=== PATIENT | female | born 1965 | race African-American/Black ===

== ENCOUNTER 2019-03-01 06:52 | Emergency (ER) | payer OTHER, BC ==
[2019-03-01] MEDS ORDERED: MORPHINE SULFATE 10 MG/ML INJ IV ONE (07:13)
[2019-03-01] MEDS ORDERED: BENZONATATE 100 MG CAPSULE PO ONE (07:13)
--- NOTE | 2019-03-01 07:21 | ER Document Report ---
ED General - General Chief Complaint: Painful Cough Stated Complaint: TROUBLE BREATHING Time Seen by Provider: 03/01/19 07:06 - HPI Notes: This is a 53-year-old female who presents today with a complaint of cough, hemoptysis and pleuritic right-sided chest pain. Patient states that she started having sharp right lateral chest wall/rib pain 2 weeks ago. Pain was worse with inspiration. She thought she might of pulled a muscle. She also have some dyspnea at the time. She states that she did relatively okay until today when she coughed up and she had blood-tinged mucus. She describes it as initially pink and then red sputum. Describes it as mild hemoptysis. She denies any recent foreign travel. She denies any night sweats. She has had slight weight loss. She denies any known exposure to tuberculosis. She recen tly moved here from [place]. She denies any calf pain. She denies any fever or chills. Describes her symptoms as moderate. Pain is worse with inspiration and coughing. - Related Data Allergies/Adverse Reactions: No Known Allergies Allergy (Unverified 03/01/19 06:53) Past Medical History - Social History Smoking Status: Never Smoker Frequency of alcohol use: None Drug Abuse: None Family History: Reviewed & Not Pertinent Patient has suicidal ideation: No Patient has homicidal ideation: No Review of Systems - Review of Systems Cardiovascular: Other - Right lateral rib/chest wall pain. Respiratory: Cough, Hemoptysis, Short of breath, Sputum Gastrointestinal: denies: Abdominal pain -: Yes All other systems reviewed and negative Physical Exam - Vital signs Vitals: Temp Pulse Resp BP Pulse Ox 99.0 F 99 30 H 165/80 H 97 03/01/19 06:57 03/01/19 06:57 03/01/19 06:57 03/01/19 06:57 03/01/19 06:57 - General General appearance: Appears well, Alert In distress: None - Respiratory Respiratory status: No respiratory distress, Tachypnea Chest status: Tender - Right posterior lateral chest wall tenderness. No crepitus or flail chest., Pain on movement, Pain with cough, Pain with deep breathing, Splinting Breath sounds: Decreased air movement. No: Rales, Wheezing Chest palpation: Normal - Cardiovascular Rhythm: Regular Heart sounds: Normal auscultation Murmur: No - Abdominal Inspection: Normal Distension: No distension Bowel sounds: Normal Tenderness: Nontender Organomegaly: No organomegaly - Extremities General upper extremity: Normal inspection, Nontender, Normal color, Normal ROM, Normal temperature General lower extremity: Normal inspection, Nontender, Normal color, Normal ROM, Normal temperature, Normal weight bearing. No: Sussy's sign - Neurological Neuro grossly intact: Yes Cognition: Normal Orientation: AAOx4 [place] Coma Scale Eye Opening: Spontaneous [place] Coma Scale Verbal: Oriented [place] Coma Scale Motor: Obeys Commands [place] Coma Scale Total: 15 Speech: Normal Motor strength normal: LUE, RUE, LLE, RLE Sensory: Normal - Psychological Associated symptoms: Normal affect, Normal mood Course - Re-evaluation Re-evalutation: 03/01/19 07:19 Differential diagnosis includes pulmonary embolus versus pneumonia versus bronchiectasis. Doubt tuberculosis. Costochondritis/chest wall strain is also possibility. There is no clinical suspicion for acute coronary syndrome with no left sided anterior chest pain. Will get CT angios. EKG shows normal sinus rhythm 96 bpm. Normal axis. No acute injury pattern. 03/01/19 09:16 Patient reevaluated. Patient is doing well. CT shows right lower lobe pneumonia. Patient is hemodynamically stable. She is not hypoxic. Labs otherwise unremarkable. She should be able to be managed as an outpatient. I will get a blood gas to make sure there is no acidosis or hypoxemia. Her pneumonia severity score so far is 44 which will be negative of outpatient management. 03/01/19 11:22 Patient reevaluated. Patient is doing well. She feels much better. Blood gas reviewed. Patient does not meet criteria for inpatient admission. We will put her on Levaquin. She is stable for discharge. Counseled to follow-up with her primary care provider. - Vital Signs Vital signs: Temp Pulse Resp BP Pulse Ox 99.0 F 99 19 150/88 H 97 03/01/19 06:57 03/01/19 06:57 03/01/19 11:03 03/01/19 11:03 03/01/19 11:03 - Laboratory Result Diagrams: 03/01/19 07:19 03/01/19 07:19 Laboratory results interpreted by me: 03/01/19 03/01/19 03/01/19 07:19 07:19 10:34 Hgb 10.8 L Hct 31.9 L RDW 14.3 H Citrus % (Auto) 13.8 H ABG pH 7.48 H ABG pO2 73.1 L ABG HCO3 27.9 H ABG Total CO2 29.0 H Glucose 168 H Discharge - Discharge Clinical Impression: Pneumonia Qualifiers: Pneumonia type: due to unspecified organism Laterality: right Lung location: lower lobe of lung Qualified Code(s): J18.9 - Pneumonia, unspecified organism Condition: Good Disposition: HOME, SELF-CARE Instructions: Pneumonia (OM) Additional Instructions: Return if worse or concerns. Follow-up with your doctor next week. Prescriptions: Guaifenesin/Hydrocodone Bit [Hycotuss Expectorant] 5 ml PO BID PRN #100 ml PRN Reason: Cough Levofloxacin [Levaquin 750 mg Tablet] 750 mg PO DAILY #5 tablet Ref[facility]: [facility] [NO LOCAL MD] - Follow up as needed
[2019-03-01 07:38] LABS: ABSOLUTE EOSINOPHILS # (AUTO) 0.1 10^3/uL (0.0-0.6); ABSOLUTE LYMPHOCYTES (AUTO) 1.9 10^3/uL (0.5-4.7); ABSOLUTE MONOCYTES (AUTO) 1.3 10^3/uL (0.1-1.4); ABSOLUTE NEUT (AUTO) 6.2 10^3/uL (1.7-8.2); BASOPHILS % (AUTO) 0.4 % (0-2); EOSINOPHILS % (AUTO) 0.6 % (0-6); HEMATOCRIT 31.9 % (36.0-47.0); HEMOGLOBIN 10.8 g/dL (12.0-15.5); LYMPHOCYTES % (AUTO) 19.9 % (13-45); MEAN CORPUSCULAR HEMOGLOBIN 27.3 pg (27.0-33.4); MEAN CORPUSCULAR HGB CONC 33.8 g/dL (32.0-36.0); MEAN CORPUSCULAR VOLUME 81 fl (80-97); MONOCYTES % (AUTO) 13.8 % (3-13); PLATELET COUNT 364 10^3/uL (150-450); RED BLOOD COUNT 3.96 10^6/uL (3.72-5.28); RED CELL DISTRIBUTION WIDTH 14.3 % (11.5-14.0); SEGMENTED NEUTROPHILS % (AUTO) 65.3 % (42-78); TOTAL CELLS COUNTED % (AUTO) 100 %; WHITE BLOOD COUNT 9.5 10^3/uL (4.0-10.5)
[2019-03-01 07:54] LABS: ANION GAP 12 (5-19); BLOOD UREA NITROGEN 9 mg/dL (7-20); CALCIUM 9.3 mg/dL (8.4-10.2); CARBON DIOXIDE 27 mmol/L (22-30); CHLORIDE 103 mmol/L (98-107); GLUCOSE 168 mg/dL (75-110)
--- NOTE | 2019-03-01 08:07 | RADIOLOGY REPORT (SQ) ---
EXAM DESCRIPTION: CHEST SINGLE VIEW COMPLETED DATE/TIME: 03/01/2019 7:54 am REASON FOR STUDY: pleuritic pain, hemoiptysis, dyspnea ? PE COMPARISON: None. NUMBER OF VIEWS: One view. TECHNIQUE: Single frontal radiographic view of the chest acquired. LIMITATIONS: None. FINDINGS: LUNGS AND PLEURA: Opacities at the right lung base. No effusions. No pneumothorax. MEDIASTINUM AND HILAR STRUCTURES: No masses or contour abnormality. HEART AND VASCULATURE: Cardiac enlargement. Vascular congestion. BONES: No acute findings. HARDWARE: None in the chest. OTHER: No other significant finding. IMPRESSION: CARDIAC ENLARGEMENT. VASCULAR CONGESTION. Superimpose right basilar opacity. TECHNICAL DOCUMENTATION: JOB ID: [id number] [employer]- All Rights Reserved Reading location - IP/workstation name: [email or web address]
--- NOTE | 2019-03-01 09:01 | RADIOLOGY REPORT (SQ) ---
EXAM DESCRIPTION: CTA CHEST COMPLETED DATE/TIME: 03/01/2019 8:44 am REASON FOR STUDY: pleuritic pain, hemoiptysis, dyspnea ? PE COMPARISON: Chest radiograph TECHNIQUE: CT scan of the chest performed using helical scanning technique with dynamic intravenous contrast injection. Images reviewed with lung, soft tissue and bone windows. Reconstructed coronal and sagittal MPR images reviewed. Additional 3 dimensional post-processing performed to develop Maximal Intensity Projection images ([place] P). All images stored on PACS. All CT scanners at this facility use dose modulation, iterative reconstruction, and/or weight based d osing when appropriate to reduce radiation dose to as low as reasonably achievable (ALARA). [facility]: Dose Right [facility]: CareDose [facility]: Dose Right [facility]: Teradose 4D [facility]: Promosome CONTRAST TYPE AND DOSE: contrast/concentration: Isovue 350.00 mg/ml; Total Contrast Delivered: 63.0 ml; Total Saline Delivered: 68.0 ml Contrast bolus adequate for pulmonary arteries and aorta. RENAL FUNCTION: GFR > 60. RADIATION DOSE: CT Rad equipment meets quality standard of care and radiation dose reduction techniq ues were employed. CTDIvol: 19.0 - 26.4 mGy. DLP: 681 mGy-cm. . LIMITATIONS: None. FINDINGS: LUNGS AND PLEURA: Extensive opacity at the right lung base consistent with pneumonia. Air bronchograms. No effusions. AORTA AND GREAT VESSELS: No aneurysm. Contrast bolus not optimized for the aorta. HEART: No pericardial effusion. No significant coronary artery calcifications. PULMONARY ARTERIES: No emboli visualized in the main pulmonary arteries or the segmental branches. HILAR AND MEDIASTINAL STRUCTURES: No identified masses or abnormal nodes. HARDWARE: None in the chest. UPPER ABDOMEN: No significant findings. Limited exam. THYROID AND OTHER SOFT TISSUES: No masses. No adenopathy. BONES: No acute or significant finding. 3D MIPS: Confirm above findings. OTHER: No other significant finding. IMPRESSION: Extensive right lower lobe pneumonia. No pulmonary emboli. COMMENT: Quality ID # [id number]: Final reports with documentation of one or more dose reduction techniques (e.g., Automated exposure control, adjustment of the mA and/or kV according to patient size, use of iterative reconstruction technique) TECHNICAL DOCUMENTATION: JOB ID: [id number] [employer]- All Rights Reserved Reading location - IP/workstation name: [email or web address]
[2019-03-01] MEDS ORDERED: TRAMADOL HCL 50 MG TABLET PO ONE (10:18)
[2019-03-01 10:48] LABS: ARTERIAL BLOOD BASE EXCESS 4.3 mmol/L; ARTERIAL BLOOD H2CO3 1.14 mmol/L (1.05-1.35); ARTERIAL BLOOD HCO3 27.9 mmol/L (20-24); ARTERIAL BLOOD O2 SATURATION 95.7 % (94-98); ARTERIAL BLOOD PH 7.48 (7.35-7.45); ARTERIAL BLOOD PO2 73.1 mmHg (80-100)
[2019-03-01 10:51] LABS: ARTERIAL BLOOD FIO2 ROOM AIR
[2019-03-01 11:11] VITALS: BP 150/88
[2019-03-01] MEDS ORDERED: LEVOFLOXACIN 750 MG TABLET PO ONE (11:22)
--- NOTE | 2019-03-01 21:34 | EKG REPORT ---
SEVERITY:- ABNORMAL ECG - SINUS RHYTHM ABNRM R PROG, CONSIDER ASMI OR LEAD PLACEMENT : Confirmed by: Arlen Elise 01-Mar-2019 21:33:50
== END 2019-03-01 11:53 | disposition home or self-care (01) ==
LOC: ER 06:52
DX: J18.9 Pneumonia, unspecified organism (principal); R07.81 Pleurodynia
CPT/HCPCS: 93005; 99284; 96374; 36415; 82803; 85025; 80048; 71045; 71275; 93010; J2270

== ENCOUNTER 2019-10-04 16:25 | Emergency (ER) | payer OTHER, MEDICARE ==
[2019-10-04 16:35] VITALS: BP 153/76
--- NOTE | 2019-10-04 16:46 | ER Document Report ---
ED Skin Rash/Insect Bite/Abscs - General Chief Complaint: Insect Bite Stated Complaint: POSSIBLE SPIDER BITE/BACK OF NECK Time Seen by Provider: 10/04/19 16:37 Primary Care Provider: [facility] [Provider Group] - Follow up as needed [facility] [Provider Group] - Follow up as needed [facility] [Provider Group] - Follow up as needed Mode of Arrival: Ambulatory Information source: Patient Notes: 54-year-old female presents to ED for an insect bite to the back of the neck. She states it happened on night while she was in [place]. She states something crawled across her neck and bit her neck. She states on Sunday morning she had 2 little small bumps and now that is swollen up until is one big lump on the back of her neck. She is alert oriented respirations regular and unlabored. She denies any swelling to her face mouth tongue or any difficulty breathing or swallowing. She states she is not taking any Benadryl or any counter medications. She states she just drove back to [place] today. She is alert oriented respirations regular and unlabored speaking in full sentences. She walks with even steady gait. - HPI Patient complains to provider of: Insect bite Onset: Just prior to arrival Onset/Duration: Gradual Quality of pain: No pain Severity: None Pain Level: Denies Skin Character: Swelling - Redness to insect bite to the back of her neck Quality of rash: Itchy Identify cause: Yes - Insect bite to the back of the neck Exacerbated by: Denies Relieved by: Denies Similar symptoms previously: Yes Recently seen / treated by doctor: No - Related Data Allergies/Adverse Reactions: No Known Allergies Allergy (Verified 10/04/19 16:39) Past Medical History - General Information source: Patient - Social History Smoking Status: Never Smoker Chew tobacco use (# tins/day): No Frequency of alcohol use: Occasional Drug Abuse: Marijuana Family History: Reviewed & Not Pertinent Patient has homicidal ideation: No - Past Medical History Cardiac Medical History: Reports: None Pulmonary Medical History: Reports: None EENT Medical History: Reports: None Neurological Medical History: Reports: None Endocrine Medical History: Reports: Hx Diabetes Mellitus Type 2 Renal/ Medical History: Reports: Hx Ovarian Cysts Malignancy Medical History: Reports: None GI Medical History: Reports: None Musculoskeletal Medical History: Reports Hx Musculoskeletal Deformity, Reports Hx Musculoskeletal Trauma Skin Medical History: Reports Hx MRSA Psychiatric Medical History: Reports: Hx Depression - PTSD Traumatic Medical History: Reports: None Infectious Medical History: Reports: Hx MRSA Past Surgical History: Reports: Hx Section, Hx Hysterectomy, Hx Orthopedic Surgery - Carpal tunnel surgery, 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 Review of Systems - Review of Systems Constitutional: No symptoms reported EENT: No symptoms reported Cardiovascular: No symptoms reported Respiratory: No symptoms reported Gastrointestinal: No symptoms reported Genitourinary: No symptoms reported Female Genitourinary: No symptoms reported Musculoskeletal: No symptoms reported Skin: Other - Insect bite to the back of the neck Hematologic/Lymphatic: No symptoms reported Neurological/Psychological: No symptoms reported Physical Exam - Vital signs Vitals: Temp Pulse Resp BP Pulse Ox 99.0 F 112 H 18 153/76 H 98 10/04/19 16:30 10/04/19 16:30 10/04/19 16:30 10/04/19 16:30 10/04/19 16:30 Interpretation: Normal - General General appearance: Appears well, Alert - HEENT Head: Normocephalic, Atraumatic Eyes: Normal Pupils: PERRL Ears: Normal External canal: Normal Tympanic membrane: Normal Sinus: Normal Nasal: Normal Mouth/Lips: Normal Mucous membranes: Normal Pharynx: Normal Neck: Posterior cervical chain - Swollen lymph node to the left posterior cervical chain - Respiratory Respiratory status: No respiratory distress Chest status: Nontender Breath sounds: Normal Chest palpation: Normal - Cardiovascular Rhythm: Regular Heart sounds: Normal auscultation Murmur: No - Abdominal Inspection: Normal Distension: No distension Bowel sounds: Normal Tenderness: Nontender Organomegaly: No organomegaly - Back Back: Normal, Nontender - Extremities General upper extremity: Normal inspection, Nontender, Normal color, Normal ROM, Normal temperature General lower extremity: Normal inspection, Nontender, Normal color, Normal ROM, Normal temperature, Normal weight bearing. No: Sussy's sign - Neurological Neuro grossly intact: Yes Cognition: Normal Orientation: AAOx4 [place] Coma Scale Eye Opening: Spontaneous [place] Coma Scale Verbal: Oriented [place] Coma Scale Motor: Obeys Commands [place] Coma Scale Total: 15 Speech: Normal Motor strength normal: LUE, RUE, LLE, RLE Sensory: Normal - Psychological Associated symptoms: Normal affect, Normal mood - Skin Skin Temperature: Warm Skin Moisture: Dry Skin Color: Normal Location of irregularity: Neck - Large insect bite to the back of the neck Course - Re-evaluation Re-evalutation: 10/04/19 22:05 Patient was given instructions on Tylenol Motrin for her pain as well as Benadryl and Pepcid for her insect bite. There is no need for any other treatments or medications at this time. She was instructed to follow-up with her primary care doctor. She was also instructed to please return to the emergency room immediately for any swelling to her face, swelling to her throat, swelling to her tongue, or any difficulty breathing or following. Patient verbalized understanding and agreement with treatment plan patient was discharged home. - Vital Signs Vital signs: Temp Pulse Resp BP Pulse Ox 99 F 112 H 18 153/76 H 98 10/04/19 16:39 10/04/19 16:30 10/04/19 16:30 10/04/19 16:30 10/04/19 16:30 Discharge - Discharge Clinical Impression: Insect bite posterior neck Condition: Stable Disposition: HOME, SELF-CARE Additional Instructions: Insect Bites You have been bitten by an insect. These bites can cause two types of swelling: an initial swelling due to insect saliva or injected poison, and a late reaction due to your body's allergic reaction. This initial local reaction may be uncomfortable but is not dangerous. Often there's an itchy "hive" at the bite location. This is treated with antihistamines, cold compresses, and resting the affected body part. The later reaction often develops about the second day. The entire area becomes very swollen, red, itchy, and tender. This is an allergic reaction. Your body is attacking the leftover insect saliva or venom. This type of allergy is unpleasant, but not dangerous. We treat this swelling with cortisone-type medicine. Sometimes we use antibiotics if we're worried about infection. Antihistamines help with the itch. If you develop a fever, chills, a red streak, or swollen glands in the area of the bite, infection may be starting. Return at once. ACID-SUPPRESSING MEDICATION: You have a prescription for medicine which reduces the stomach's secretion of acid. Examples include Zantac, Tagament, and Pepcid. These drugs are often used to allow healing of ulcers or esophagitis. They may be needed to prevent recurrence of ulcers in some patients, or to prevent damage from acid reflux in the esophagus. Take all medication as prescribed, even after the pain is gone. Regular antacids may be added as needed if you have symptoms while taking this medicine. These medications sometimes are prescribed for allergic reactions because they have anti-histaminic effects and relieve the rash and itching of the reaction. There are usually no side effects from this medication. But, in rare cases and particularly in the elderly, serious problems can occur. Contact your doctor if there is fever, rash, hallucinations, confusion, or unusual bruising. Contact your doctor at once if you develop lightheadedness, black or bloody stool, or bloody vomitus. ANTIHISTAMINES: An antihistamine has been given and/or prescribed to control your symptoms. Antihistamines are used for many reasons, including itching, watering eyes, runny nose, allergic swelling, hives, and insect stings. Antihistamines may cause drowsiness, especially with the first dose. Do not operate machinery or drive while under the effects of the medication. Other common side effects include dry mouth and eyes. In older persons, antihistamines can occasionally cause urinary retention, constipation, and trouble focusing the eyes. Do not combine the medication with alcohol, or with any other medication without talking to your doctor. USE OF DIPHENHYDRAMINE: The use of diphenhydramine (Benadryl) has been recommended to control allergic symptoms. The 25 mg strength is available over- the-counter, as well as the elixir. This antihistamine is used for many symptoms. It's useful for itching, watering eyes and nose, allergic swelling, hives, and insect stings. The medication can be repeated four times daily. Age Elixir (12.5 mg/tsp) 25 mg pill 2-3 yr 1/2 tsp 4-8 yr 1 tsp 9-14 yr 2 tsp one tab adult 1-2 tabs Antihistamines may cause drowsiness, especially with the first dose. Do n ot operate machinery or drive while under the effects of the medication. Do not combine the medication with alcohol, or with any other medication without talking to your doctor. You can take up to 50 mg every 6 hours as long as you are not driving. FOLLOW-UP CARE: If you have been referred to a physician for follow-up care, call the physicians office for an appointment as you were instructed or within the next two days. If you experience worsening or a significant change in your symptoms, notify the physician immediately or return to the Emergency Department at any time for re-evaluation. Forms: Elevated Blood Pressure, Smoking Cessation Education Referrals: [facility] [Provider Group] - Follow up as needed [facility] [Provider Group] - Follow up as needed [facility] [Provider Group] - Follow up as needed
== END 2019-10-04 16:53 | disposition home or self-care (01) ==
LOC: ER 16:25
DX: S10.96XA Insect bite of unspecified part of neck, initial encounter (principal); W57.XXXA Bitten or stung by nonvenomous insect and other nonvenomous arthropods, initial encounter; E11.9 Type 2 diabetes mellitus without complications
CPT/HCPCS: 99282